=== PATIENT | male | born 1985 ===

== ENCOUNTER 2020-03-11 17:49 | Inpatient (IN) ==
[2020-03-11 20:37] LABS: Basophils % 0.5 % (0.0-0.8); Eosinophils # 0.2 10*3/uL (0.0-0.87); Eosinophils % 3.6 % (0.00-10.9); Hematocrit 36.3 VOL% (42.0-52.0); Hemoglobin 12.4 GM/DL (14.0-18.0); Immature Granulocytes % 0.7 %; Immature Granulocytes Absolute 0.04 #; Lymphocytes % 35.4 % (21.2-54.2); Mean Corpuscular HGB Conc 34.2 GM/DL (32-36); Mean Corpuscular Volume 89.9 FL (87-102); Monocytes % 9.2 % (1.7-12.7); Neutrophils % 50.6 % (38.7-73.9); Platelet Count 151 T/CUMM (130-400); Red Blood Count 4.04 MC/CUMM (3.8-5.5); Red Cell Distribution Width 13.2 % (9.3-17.3); White Blood Count 5.6 T/CUMM (4-12)
[2020-03-11 20:40] LABS: ABG Base Excess -10.3 MMOL/L (-2.5-2.5); ABG HCO3 16.4 MMOL/L (20-26); ABG PCO2 30.1 MM HG (35-48); ABG PH 7.304 (7.35-7.45); ABG TCO2 13.3 MMOL/L (23-27)
[2020-03-11 20:53] LABS: Albumin 3.7 G/DL (3.4-5.0); Bilirubin,Total 0.6 MG/DL (0.2-1.0); Calcium 8.3 MG/DL (8.5-10.1); Osmolality,Calculated 275.4 MOS/KG (273-304)
[2020-03-11] MEDS ORDERED: SODIUM BICARB INJ 100 MEQ in STERILE WATER INJ 400 ML IV PRN (21:04)
[2020-03-11] MEDS ORDERED: SODIUM CHLORIDE 0.9% 1,000 ML IV ONE (21:04)
[2020-03-11] MEDS ORDERED: INSULIN REGULAR 100 UNIT/ML IV ONE (21:04)
[2020-03-11] MEDS ORDERED: MAGNESIUM SULF RIDER 4 GM in PREMIX 1 EACH IV PRN (21:04)
[2020-03-11] MEDS ORDERED: POTASSIUM CHLORIDE RIDER 10 MEQ in PREMIX 1 EACH IV PRN (21:04)
[2020-03-11] MEDS ORDERED: SODIUM PHOSPHATE INJ 19.8 MMOL in SODIUM CHLORIDE 0.9% 250 ML IV PRN (21:04)
[2020-03-11] MEDS ORDERED: GLUCAGON 1 MG VIAL IM PRN ×2 (21:04)
[2020-03-11] MEDS ORDERED: ACETAMINOPHEN 325 MG TABLET PO PRN (21:04)
[2020-03-11] MEDS ORDERED: MAGNESIUM SULF RIDER 2 GM in PREMIX 1 EACH IV PRN (21:04)
[2020-03-11] MEDS ORDERED: ONDANSETRON 4 MG/2 ML VIAL IV PRN (21:04)
[2020-03-11] MEDS ORDERED: DEXTROSE 50% 25 GM/50 ML VIAL IV PRN ×4 (21:04)
[2020-03-11] MEDS ORDERED: INSULIN REGULAR DRIP 100 ML IV SCH (21:30)
[2020-03-11] MEDS: ENOXAPARIN 40 MG/0.4 ML SYRINGE SUBCUT SCH (22:14)
[2020-03-11] MEDS: SODIUM CHLORIDE 0.9% 1,000 ML IV SCH (22:45)
[2020-03-12 00:01] LABS: Calcium 7.6 MG/DL (8.5-10.1)
[2020-03-12] MEDS ORDERED: SODIUM CHLOR 0.45% KCL 20 MEQ 20 MEQ/1,000 ML BAG IV SCH (00:30)
[2020-03-12 00:46] LABS: Apearance,Urine Clear (Clear); Glucose,Urine (UA) >500 mg/dL (Negative); Ketones,Urine 80 mg/dL (Negative); Nitrite,Urine Negative (Negative); Protein,Urine 30 MG/DL; Urine Color Yellow (Yellow); Urine Specific Gravity 1.028 (1.001-1.035)
[2020-03-12 00:47] LABS: Bilirubin,Urine Negative (Negative); Blood, Urine Small mg/dL (Negative); WBC,Urine 0-3 /HPF (0-6)
[2020-03-12] MEDS: DEXT 5% NACL 0.45% KCL 20 MEQ 20 MEQ/1,000 ML BAG IV SCH ×3 (01:13→09:30)
[2020-03-12] MEDS: SODIUM CHLORIDE 0.9% 1,000 ML IV SCH ×3 (01:14→18:06)
[2020-03-12] MEDS ORDERED: SODIUM CHLORIDE 0.9% 1,000 ML IV SCH (02:05)
[2020-03-12 03:03] LABS: Basophils % 0.5 % (0.0-0.8); Eosinophils # 0.2 10*3/uL (0.0-0.87); Hematocrit 32.6 VOL% (42.0-52.0); Hemoglobin 11.3 GM/DL (14.0-18.0); Immature Granulocytes % 0.3 %; Immature Granulocytes Absolute 0.02 #; Lymphocytes # 1.9 10*3/uL (1.4-4.0); Lymphocytes % 32.6 % (21.2-54.2); Mean Corpuscular HGB Conc 34.7 GM/DL (32-36); Mean Corpuscular Volume 88.8 FL (87-102); Mean Platelet Volume 10.7 FL (9.6-12.0); Monocytes % 10.4 % (1.7-12.7); Neutrophils % 52.2 % (38.7-73.9); Platelet Count 127 T/CUMM (130-400); Red Blood Count 3.67 MC/CUMM (3.8-5.5); Red Cell Distribution Width 13.3 % (9.3-17.3); White Blood Count 5.8 T/CUMM (4-12)
[2020-03-12 03:33] LABS: Calcium 7.6 MG/DL (8.5-10.1); Osmolality,Calculated 274.8 MOS/KG (273-304)
[2020-03-12 07:42] LABS: Calcium 7.9 MG/DL (8.5-10.1); Risk Ratio 7.42; Thyroid Stimulating Hormone 4.13 uIU/ml (0.358-3.74); VLDL CHOLESTEROL 88.8 MG/DL
[2020-03-12] MEDS ORDERED: DEXTROSE 50% 25 GM/50 ML VIAL IV PRN (07:57)
[2020-03-12] MEDS ORDERED: GLUCAGON 1 MG VIAL IM PRN (07:57)
[2020-03-12] MEDS: POTASSIUM CHLORIDE 20 MEQ TABLET PO PRN ×2 (08:35→10:50)
[2020-03-12] MEDS: INSULIN GLARGINE 100 UNIT/ML SUBCUT SCH ×2 (08:35→20:45)
[2020-03-12] MEDS: PANTOPRAZOLE 40 MG TABLET PO SCH (08:35)
[2020-03-12] MEDS: INSULIN LISPRO 100 UNIT/ML SUBCUT SCH ×4 (11:35→20:45)
[2020-03-12 11:38] LABS: Calcium 7.9 MG/DL (8.5-10.1); Osmolality,Calculated 269.7 MOS/KG (273-304)
[2020-03-12] MEDS ORDERED: SODIUM CHLORIDE 0.45% 1,000 ML IV SCH (14:05)
[2020-03-12] MEDS: ENOXAPARIN 40 MG/0.4 ML SYRINGE SUBCUT SCH (20:46)
[2020-03-13] MEDS: SODIUM CHLORIDE 0.9% 1,000 ML IV SCH ×5 (02:25→23:48)
[2020-03-13] MEDS: INSULIN LISPRO 100 UNIT/ML SUBCUT SCH ×9 (03:31→21:10)
[2020-03-13 05:56] LABS: Calcium 7.9 MG/DL (8.5-10.1); Osmolality,Calculated 271.1 MOS/KG (273-304)
[2020-03-13] MEDS: INSULIN GLARGINE 100 UNIT/ML SUBCUT SCH ×2 (09:48→21:09)
[2020-03-13] MEDS: PANTOPRAZOLE 40 MG TABLET PO SCH (09:49)
[2020-03-13] MEDS: POTASSIUM CHLORIDE 20 MEQ TABLET PO PRN ×5 (09:49→23:47)
[2020-03-13] MEDS: ENOXAPARIN 40 MG/0.4 ML SYRINGE SUBCUT SCH (21:10)
[2020-03-14] MEDS: POTASSIUM CHLORIDE 20 MEQ TABLET PO PRN ×3 (02:12→06:20)
[2020-03-14] MEDS: SODIUM CHLORIDE 0.9% 1,000 ML IV SCH (05:05)
[2020-03-14] MEDS: INSULIN LISPRO 100 UNIT/ML SUBCUT SCH ×3 (07:50→12:43)
[2020-03-14 08:27] VITALS: BP 126/77
[2020-03-14] MEDS: PANTOPRAZOLE 40 MG TABLET PO SCH (10:21)
[2020-03-14] MEDS: INSULIN GLARGINE 100 UNIT/ML SUBCUT SCH (10:24)
[2020-03-14] MEDS ORDERED: ATORVASTATIN 10 MG TABLET PO SCH (21:00)
== END 2020-03-14 12:55 | disposition home or self-care (01) | DRG 638 ==
LOC: N.ICU 19:35 → SUATTDRO 19:35 → N.4E 03-12 12:44
PROVIDERS: ADMIT Phlebology; ATTEND Internal Medicine